=== PATIENT | male | born 1990 | race Caucasian/White ===

== ENCOUNTER 2017-09-26 17:43 | Emergency (ER) | payer OTHER ==
[2017-09-26] MEDS ORDERED: IBUPROFEN 600 MG TABLET PO ONE (18:26)
[2017-09-26 18:55] VITALS: BP 131/72
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
== END 2017-09-26 19:50 | disposition home or self-care (01) ==
LOC: ER 17:43
DX: S02.2XXA Fracture of nasal bones, initial encounter for closed fracture (principal); R68.84 Jaw pain; M79.645 Pain in left finger(s); Y04.0XXA Assault by unarmed brawl or fight, initial encounter; Y92.148 Other place in prison as the place of occurrence of the external cause
CPT/HCPCS: 70160; 99283